=== PATIENT | female | born 1930 | race Caucasian/White ===

== ENCOUNTER 2017-06-02 17:07 | Inpatient (IN) | payer MEDICARE ==
[2017-06-02] MEDS ORDERED: Morphine 4 MG/ML VIAL ONE (18:21)
[2017-06-02] MEDS ORDERED: Ondansetron HCl/PF 4 MG/2 ML Vial ONE (18:21)
[2017-06-02 18:52] LABS: Bilirubin Small (Negative); Blood, Urine Negative (Negative); Glucose, Urine (Dipstick) Negative (Negative); Ketone, Urine Negative (Negative); Nitrite Negative (Negative); Protein, Urine (Dipstick) Trace mg/dL (Neg-Trace)
[2017-06-02 18:54] LABS: Bacteria/HPF None Seen HPF (None Seen); Hyaline Casts/LPF 4-6 HYALINE CAST LPF (0-3 Hyaline); RBC/HPF 0-3 HPF (0-3); Squamous Epithelial 0-3 HPF (0-3)
[2017-06-02 18:59] LABS: Renal Epithelial None Seen HPF (0-3); Transitional Epithelial NONE SEEN HPF (0-3)
--- NOTE | 2017-06-02 19:29 | RAD ---
RIGHT HIP 2 VIEWS: Date: 06/02/17 HISTORY: Right hip pain, trauma. COMPARISON: Femur radiographs from same day. FINDINGS: There is a mild varus-angulated intertrochanteric fracture of the right femur. Obturator ring appears to be intact. IMPRESSION: Mildly varus angulation of intertrochanteric fracture of the right femur which extends into the lesse r and greater trochanters. POS: FROYLAN
[2017-06-02 20:05] LABS: #Lymphocytes 0.8 thou/uL (1.20-3.40); #Neutrophils 9.5 thou/uL (1.40-6.50); %Basophils 0.1 % (0.0-1.0); %Eosinophils 0.1 % (0.0-10.0); %Lymphocytes 6.9 % (21.0-51.0); %Monocytes 8.5 % (0.0-10.0); Hematocrit 35.5 % (36.0-47.0); Mean Platelet Volume 6.4 fL (7.4-10.4); Red Blood Cell (RBC) Count 3.99 mill/uL (4.20-5.40); White Blood Cell (WBC) Count 11.3 thou/uL (4.8-10.8)
[2017-06-02 20:12] LABS: PTT 30.6 SEC (22.9-36.1)
[2017-06-02 20:27] LABS: ALT (SGPT) 13 U/L (8-55); AST (SGOT) 19 U/L (5-34); Alkaline Phosphatase 74 U/L (40-150); Anion Gap 12 mmol/L (10-20); BUN (Urea Nitrogen) 28 mg/dL (9.8-20.1); Bilirubin, Total 0.4 mg/dL (0.2-1.2); Calc. Creatinine Clearance 0 mL/min (70-130); Calcium 9.5 mg/dL (7.8-10.44); Carbon Dioxide 28 mmol/L (23-31); Chloride 102 mmol/L (98-107); Estimated GFR-MDRD 31; Globulin 2.9 g/dL (2.4-3.5); Protein, Total 6.8 g/dL (6.0-8.3)
[2017-06-02] MEDS ORDERED: Cyclobenzaprine 10 MG TAB ONE (20:52)
[2017-06-02] MEDS ORDERED: Ondansetron HCl/PF 4 MG/2 ML Vial IVP PRN ×2 (22:00→22:01)
[2017-06-02] MEDS ORDERED: Ondansetron ODT 4 MG TAB SL PRN (22:00)
[2017-06-02] MEDS ORDERED: Acetaminophen 325 MG TAB PO PRN (22:00)
[2017-06-02] MEDS ORDERED: Morphine 4 MG/ML VIAL SLOW IVP PRN ×2 (22:00→22:01)
[2017-06-02] MEDS ORDERED: Dextrose 50% Abboject 50 ML SYRINGE SLOW IVP PRN (22:01)
[2017-06-02] MEDS ORDERED: hydrALAZINE 20 MG/ML VIAL SLOW IVP PRN (22:01)
[2017-06-02] MEDS ORDERED: Morphine 2 mg/2ml in 0.9% NaCl PF SYRINGE IVP PRN (22:01)
[2017-06-02] MEDS ORDERED: Ondansetron ODT 4 MG TAB PO PRN (22:01)
[2017-06-02] MEDS ORDERED: Dextrose 5% in Water 1,000 ML IV PRN (22:01)
[2017-06-02] MEDS ORDERED: HYDROcodone/Acetaminophen 10/325 mg Tablet PO PRN (22:01)
[2017-06-02] MEDS ORDERED: Famotidine 20 MG TAB PO SCH (22:15)
--- NOTE | 2017-06-02 22:27 | HP ---
DATE OF ADMISSION: 06/02/2017 REQUESTING PHYSICIAN: Dr. Davenport. ATTENDING SURGEON: Dr. Juárez. CONSULTATIONS: Orthopedics, Dr. Gresham. HISTORY OF PRESENT ILLNESS: The patient is an 87-year-old woman who was loading things int o her truck when she lost her footing and slipped and fell and landed on her right hip. The patient had immediate pain, was assisted to a standing position by some bystanders and EMS was called. The p atient complained of significant right hip pain. [facility] [place]. She underwent evaluation and examination and was noted to have what was believed to be a lesser trochanteric fracture, at which time she was transferred here for orthopedic evaluatio n. Here, she had repeat films specifically of her right hip, the prior films were of her femur and o ur films showed that she actually had an intertrochanteric fracture at which time we were asked to ev aluate the patient for admission and obtain orthopedic consultations. ALLERGIES: REGLAN. CURRENT MEDICATIONS: Lisinopril 40 mg a day, amlodipine 10 mg a day, Protonix 40 mg a day, aspirin 8 1 mg a day. PAST MEDICAL HISTORY: Hypertension. PAST SURGICAL HISTORY: Hiatal hernia repair, left ankle ORIF and hysterectomy. SOCIAL HISTORY: The patient currently lives independently alone. She drinks a small glass of whiske y every other day. Denies drug use. Denies tobacco use. FAMILY MEDICAL HISTORY: Noncontributory. REVIEW OF SYSTEMS: A 10-point review of systems was negative, unless otherwise stated. PHYSICAL EXAMINATION: VITAL SIGNS: Blood pressure 114/66, heart rate 90, respirations 16, oxygen saturation 96% on room ai r. GENERAL: The patient is resting comfortably in the emergency room bed. She is alert and oriented x3 . Her Chauncey coma scale is 15. HEENT: Head is atraumatic, normocephalic. Eyes: Extraocular motion intact. PERRLA bilaterally. E ars are atraumatic without discharge. Nose is atraumatic without discharge. Oropharynx is clear. NECK: Nontender. Trachea is midline. No JVD. CHEST: Clear to auscultation with good inspiratory and expiratory effort. HEART: Regular rate and rhythm. ABDOMEN: Soft, flat, nontender with active bowel sounds. Pelvis is stable. EXTREMITIES: The patient is tender to right hip, consistent with her fracture. She is neurovascular ly intact x4. BACK: By report is atraumatic and nontender. LABORATORY FINDINGS: White blood cell count 11.3, hemoglobin 11.5, hematocrit 35.5, platelets 237. Sodium 137, potassium 4.5, chloride 102, CO2 of 28, BUN 28, creatinine 1.57, glucose 131. LFTs are u nremarkable. PTT 31, PT 14, INR 1.1. Urinalysis shows 11-20 wbc's with moderate leukocyte esterase and no bacteria. RADIOGRAPHS: Two views of the right hip show a mildly varus angulation of an intertrochanteric fract ure of the right femur, which extends into the lesser and greater trochanters. ASSESSMENT AND PLAN: 1. Status post ground level fall. 2. Right hip fracture. 3. Acute pain secondary to trauma. 4. History of hypertension. Plan will be to admit the patient to the surgical floor for pain management, pulmonary toilet, gastri tis and mechanical DVT prophylaxis. Consultation with Dr. Gresham. Dr. Gresham reviewed the rad iographs and history, we will discuss surgical options with the family in the morning and we will zohreh e the patient n.p.o. after midnight. The evaluation, examination, radiographic and laboratory findin gs will be discussed with Dr. Juárez after this dictation.
[2017-06-02] MEDS: HYDROcodone/Acetaminophen 10/325 mg Tablet PO PRN (22:58)
[2017-06-02] MEDS: Sodium Chloride 0.9% 1,000 ML IV SCH (22:59)
[2017-06-03] MEDS: Acetaminophen 1,000 MG in Premix Bag 1 BAG IVPB SCH ×3 (00:05→11:27)
[2017-06-03 04:07] VITALS: BMI 21.9
[2017-06-03 05:51] LABS: #Eosinphils 0.1 thou/uL (0.0-0.7); #Lymphocytes 1.5 thou/uL (1.20-3.40); #Monocytes 0.8 thou/uL (0.11-0.59); #Neutrophils 3.5 thou/uL (1.40-6.50); %Basophils 0.4 % (0.0-1.0); %Eosinophils 1.2 % (0.0-10.0); %Lymphocytes 25.7 % (21.0-51.0); %Monocytes 13.3 % (0.0-10.0); Hematocrit 31.5 % (36.0-47.0); Mean Platelet Volume 6.3 fL (7.4-10.4); Red Blood Cell (RBC) Count 3.49 mill/uL (4.20-5.40)
[2017-06-03 06:05] LABS: Anion Gap 7 mmol/L (10-20); BUN (Urea Nitrogen) 26 mg/dL (9.8-20.1); Calc. Creatinine Clearance 29 mL/min (70-130); Calcium 8.5 mg/dL (7.8-10.44); Carbon Dioxide 30 mmol/L (23-31); Chloride 103 mmol/L (98-107); Estimated GFR-MDRD 38
[2017-06-03] MEDS: Sodium Chloride 0.9% 1,000 ML IV SCH ×4 (06:41→20:55)
[2017-06-03] MEDS ORDERED: CEFAZOLIN/Water 2 GM/20 ML SYRINGE SLOW IVP SCH (08:45)
--- NOTE | 2017-06-03 09:40 | CON ---
DATE OF CONSULTATION: 06/03/2017 CHIEF COMPLAINT: Right hip pain. HISTORY OF PRESENT ILLNESS: Ms. Cervantes is an 87-year-old female who is active. 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 She lost her balance and fell. She landed o n her right hip. She had immediate pain. She was unable to ambulate. She was found to have an inte rtrochanteric femur fracture of the right hip on x-rays. She has been admitted to the hospital by [facility]. She has been comfortable. Pain is under control. No other complaints or problems. ALLERGIES: REGLAN. PAST MEDICAL HISTORY: Hypertension. PAST SURGICAL HISTORY: Hiatal hernia repair, previous left ankle ORIF, previous hysterectomy. SOCIAL HISTORY: The patient denies tobacco or drug use. She has occasional alcohol use. FAMILY MEDICAL HISTORY: Noncontributory. REVIEW OF SYSTEMS: Positive for mild right hip pain, otherwise negative 10-point review of systems. IMAGES: X-rays of the right hip reveal an intertrochanteric femur fracture with displacement. LABORATORY STUDIES: Hemoglobin 9.9, hematocrit 31.5, INR is 1.1. PHYSICAL EXAMINATION: VITAL SIGNS: Temperature is 98.4, pulse is 64, respiratory 16, oxygen saturation 94, blood pressure 126/69. GENERAL: She is alert, sitting upright in no apparent distress. RESPIRATORY: Breathing comfortably. ABDOMEN: Soft, nontender, and nondistended. MUSCULOSKELETAL: The patient's right lower extremity has an externally rotated position. She has pa lpable pulses and is able to flex and extend the foot and ankle. She has intact neurologic exam. IMPRESSION: Right intertrochanteric femur fracture in an elderly female. PLAN: At this point, the patient will need to go to the operating room for intramedullary nail fixat ion of her right proximal femur. She will be n.p.o. She is aware of risks and benefits. Goal of olmos rgery is early mobilization and prevention of complications of bed rest. She will have appropriate a ntibiotic and DVT prophylaxis.
[2017-06-03] MEDS ORDERED: Fentanyl 100 MCG/2 ML VIAL ONE ×3 (12:49→16:54)
[2017-06-03] MEDS ORDERED: Bupivacaine PF 0.5% 30 ML VIAL ONE (13:01)
[2017-06-03] MEDS ORDERED: Fentanyl 250 MCG/5 ML VIAL ONE (14:04)
[2017-06-03] MEDS ORDERED: Propofol 200 MG/20 ML VIAL ONE (14:24)
[2017-06-03] MEDS ORDERED: ePHEDrine/0.9% NaCl/PF SYRINGE 50 mg/10 ml ONE (14:24)
[2017-06-03] MEDS ORDERED: PHENYLEPHRINE-NS 100 MCG/ML 10 ML SYRINGE ONE (14:24)
[2017-06-03] MEDS ORDERED: Ondansetron HCl/PF 4 MG/2 ML Vial ONE (14:24)
[2017-06-03] MEDS ORDERED: Glycopyrrolate 0.2 MG/ML 5 ML SYRINGE ONE (14:24)
[2017-06-03] MEDS ORDERED: Lidocaine 1% PF 5 ML VIAL ONE (14:24)
[2017-06-03] MEDS ORDERED: Midazolam HCl 2 mg/2 ml Vial ONE (14:35)
[2017-06-03] MEDS ORDERED: Dexamethasone 4 mg/ml Vial ONE (14:36)
[2017-06-03] MEDS ORDERED: Promethazine HCl 25 MG/ML VIAL IM PRN (16:26)
[2017-06-03] MEDS ORDERED: Promethazine HCl 25 MG/ML VIAL SLOW IVP PRN (16:26)
[2017-06-03] MEDS ORDERED: Ondansetron HCl/PF 4 MG/2 ML Vial IVP PRN (16:26)
--- NOTE | 2017-06-03 17:03 | PRG ---
DATE OF SERVICE: 06/03/2017 This is Melissa Cullen NP, dictating daily progress note for Miguelangel Ferrara DO SUBJECTIVE: Ms. Cervantes is an 87-year-old female status post ground level fall. She presented to the ER last p.m. and was admitted with right intertrochanteric femur fracture. She has been stable on the floor overnight. She reports pain to her right hip that has been controlled with IV analgesia. She is currently n.p.o. and awaiting surgery today by orthopedics. OBJECTIVE: VITAL SIGNS: Temperature 98.4, pulse 64, respirations 16, O2 sat 94% on room air, blood pressure 126/69. GENERAL: Elderly female resting in bed in no acute distress. HEENT: Atraumatic, normocephalic. PULMONARY: Lungs clear to auscultation bilaterally. No respiratory distress. CARDIOVASCULAR: Regular rate and rhythm. ABDOMEN: Soft, nontender, nondistended. EXTREMITIES: Neurovascularly intact in all extremities. Moves all digits well. Cap refill brisk. Pain to right hip with palpation. ASSESSMENT: 87-year-old female status post ground level fall. 1. OR today with Orthopedics. 2. Rehab referral for discharge placement. 3. Monitor H&H postoperatively. Transfuse as indicated. The patient was seen and examined with attending trauma surgeon. RANJITH
--- NOTE | 2017-06-03 18:44 | RAD ---
INTRAOPERATIVE FLUOROSCOPY: Date: 06/03/17 HISTORY: Open reduction and internal fixation right hip. Right hip fracture. FINDINGS: Four fluoroscopic views demonstrate gamma nail and dynamic compression screw traversing the right hip . Fracture lucency is identified. Alignment is near anatomic. EXPOSURE: 35 seconds fluoro time. 3.70 mGy*cm^2. IMPRESSION: Fluoroscopy as above. POS: SHANELL
[2017-06-03] MEDS: Famotidine 20 MG TAB PO SCH (20:54)
--- NOTE | 2017-06-03 21:54 | OP ---
DATE OF PROCEDURE: 06/03/2017 OPERATION: Right femur intramedullary nail fixation of intertrochanteric femur fracture. PREOPERATIVE DIAGNOSIS: Right intertrochanteric femur fracture. POSTOPERATIVE DIAGNOSIS: Right intertrochanteric femur fracture. COMPLICATIONS: None. ESTIMATED BLOOD LOSS: 50 mL. SURGEON: Tamir Gresham M.D. ULTRASOUND TECH: Gerry Murray PA-C. INDICATIONS: Ms. Cervantes is an 87-year-old female who fell. She sustained a fracture of her right f emur. She was indicated for intramedullary nail fixation to restore alignment and promote healing. Risks have been reviewed. Goal of surgery is to promote early mobilization. DESCRIPTION OF OPERATION: Ms. Cervantes was identified in the preoperative holding area. Her correct extremity was marked. She was carried to the operating room. She was positioned supine. General an esthesia was induced. A multidisciplinary timeout was performed. The right lower extremity was prep ped and draped in sterile fashion. We began the procedure with applying traction to the right leg. We used intraoperative x-ray to eval uate the fracture. We reduced the fracture into its anatomic position with traction and rotation. O nce this was accomplished, we made a small incision over the greater trochanter. We incised down thr ough the fascia. We then inserted a guidewire into the tip of the trochanter distally. Next, we ove rreamed the guidewire from proximal to distal. We then placed our intramedullary device through our guide hole. This was seated appropriately using x-ray guidance. Next, we placed a helical blade in the center-center position of the femoral head. This was followed by placing a distal cross lock scr ew appropriately. After final x-ray images, there were no complications. We thoroughly irrigated ou r wounds. We then closed with 0 Vicryl suture, 2-0 Vicryl suture and ileana for the skin, a sterile dressing was applied. The patient was taken to the recovery room in good condition at this point. IMPLANTS: Synthes short trochanteric nail size 11 mm.
[2017-06-03] MEDS: traMADol HCl 50 MG TAB PO PRN (22:00)
[2017-06-03] MEDS: CEFAZOLIN/Water 2 GM/20 ML SYRINGE SLOW IVP SCH (22:06)
[2017-06-04] MEDS: traMADol HCl 50 MG TAB PO PRN ×2 (02:00→14:49)
[2017-06-04] MEDS: Sodium Chloride 0.9% 1,000 ML IV SCH ×2 (02:00→16:06)
[2017-06-04] MEDS: CEFAZOLIN/Water 2 GM/20 ML SYRINGE SLOW IVP SCH (06:23)
[2017-06-04] MEDS: Enoxaparin Sodium 40 MG/0.4 ML SYRINGE SC SCH (08:28)
[2017-06-04] MEDS: HYDROcodone/Acetaminophen 10/325 mg Tablet PO PRN (09:37)
--- NOTE | 2017-06-04 11:49 | PRG ---
DATE OF SERVICE: 06/04/2017 This is Melissa Cullen N.P. dictating daily progress note for Dr. Miguelangel Ferrara. SUBJECTIVE: Ms. Cervantes is an 87-year-old female status post ground level fall. She is postop day #1 status post IM nail fixation of right intertrochanteric femur fracture. She was stable overnight on the surgical floor. Pain has been well controlled while in bed, but she had significant pain when mobilizing with PT/OT. OBJECTIVE: VITAL SIGNS: Temperature 97.6, pulse 81, respirations 14, O2 sat 96%, and blood pressure 122/60. GENERAL: Elderly female resting in bed in no acute distress. HEENT: Atraumatic, normocephalic. PULMONARY: Lungs are clear to auscultation bilaterally. No respiratory distress. CARDIOVASCULAR: Regular rate and rhythm. ABDOMEN: Soft, nontender, and nondistended. EXTREMITIES: Neurovascularly intact. All extremities, moves all digits well. Cap refill brisk and faint. ASSESSMENT: 1. 87-year-old female status post ground level fall. 2. Status post open reduction and internal fixation of right intertrochanteric femur fracture. PLAN: 1. Continue current care as ordered. 2. Rehabilitation referral for discharge planning and placement. 3. Continue mobilizing with physical and occupational therapy. 4. Continue to monitor H&H and transfuse as indicated. 5. DC [place]. Start scheduled Tylenol and ultram. Plan of care was discussed at length with patient and her family. Family and patient prefer swing bed in [place] at discharge. Patient was seen and examined with Dr. Ferrara. [facility]PITAL[facility]ie
[2017-06-04] MEDS ORDERED: traMADol HCl 50 MG TAB PO PRN (14:47)
[2017-06-04] MEDS: traMADol HCl 50 MG TAB PO SCH ×2 (15:31→20:39)
[2017-06-04] MEDS: Acetaminophen 500 MG TAB PO SCH ×2 (15:33→20:39)
[2017-06-04] MEDS: Famotidine 20 MG TAB PO SCH (20:40)
[2017-06-05] MEDS: Sodium Chloride 0.9% 1,000 ML IV SCH (02:35)
[2017-06-05] MEDS: traMADol HCl 50 MG TAB PO SCH ×5 (03:33→22:12)
[2017-06-05] MEDS: Acetaminophen 500 MG TAB PO SCH ×4 (03:33→20:37)
[2017-06-05 07:00] LABS: #Eosinphils 0.3 thou/uL (0.0-0.7); #Lymphocytes 1.2 thou/uL (1.20-3.40); #Monocytes 0.8 thou/uL (0.11-0.59); #Neutrophils 4.4 thou/uL (1.40-6.50); %Basophils 0.7 % (0.0-1.0); %Eosinophils 4.7 % (0.0-10.0); %Lymphocytes 17.1 % (21.0-51.0); %Monocytes 11.5 % (0.0-10.0); Hematocrit 27.5 % (36.0-47.0); Mean Platelet Volume 6.7 fL (7.4-10.4); Red Blood Cell (RBC) Count 3.02 mill/uL (4.20-5.40); White Blood Cell (WBC) Count 6.7 thou/uL (4.8-10.8)
[2017-06-05 07:16] LABS: Anion Gap 9 mmol/L (10-20); BUN (Urea Nitrogen) 19 mg/dL (9.8-20.1); Calc. Creatinine Clearance 40 mL/min (70-130); Calcium 8.6 mg/dL (7.8-10.44); Carbon Dioxide 26 mmol/L (23-31); Chloride 103 mmol/L (98-107); Estimated GFR-MDRD 54; Magnesium 1.7 mg/dL (1.6-2.6); Phosphorus 2.4 mg/dL (2.3-4.7)
[2017-06-05] MEDS ORDERED: Potassium Phosphate 20 MMOL, Magnesium Sulfate 3 GM in Sodium Chloride 0.9% 250 ML 250 ML IVPB SCH (08:30)
[2017-06-05] MEDS: Enoxaparin Sodium 40 MG/0.4 ML SYRINGE SC SCH (08:37)
--- NOTE | 2017-06-05 15:36 | PRG ---
DATE OF SERVICE: 06/05/2017 This is Melissa Cullen N.P., dictating daily progress note for Miguelangel Ferrara D.O. SUBJECTIVE: Ms. Cervantes is an 87-year-old female, status post ground-level fall. She is postop day #2, status post IM nail fixation of right intertrochanteric femur fracture. She has been clinically stable overnight on the surgical floor. Her hemoglobin has trended down. It was 11.5 two days ago and today is 8.7. She did have some issues yesterday mobilizing with physical therapy. She had significant pain when mobilizing without taking her pain medications. OBJECTIVE: VITAL SIGNS: Temperature 98.4, pulse 88, respirations 16, blood pressure 126/ 69. GENERAL: Elderly female resting in bed in no acute distress. HEENT: Atraumatic, normocephalic. PULMONARY: No respiratory distress. Respirations are even and unlabored. CARDIOVASCULAR: Regular rate and rhythm. ABDOMEN: Soft, nontender, nondistended. EXTREMITIES: Neurovascularly intact. Capillary refill brisk. ASSESSMENT: 1. An 87-year-old female status post ground-level fall. 2. Status post open reduction and internal fixation, right intertrochanteric femur fracture. 3. Acute blood loss anemia. PLAN: 1. Continue mobilization with physical and occupational therapy. 2. Monitor H and H and transfuse as indicated. 3. Continue scheduled pain medication. 4. Case management consult for discharge planning. Extensive discussion had with patient and granddaughter. The patient still reports that she would like to discharge to swing bed in [place] when able to. Anticipate discharge will be in the next 1 to 2 days if H and H and clinical condition should remain stable. Plan of care was discussed at length with patient and granddaughter. The patient was seen and examined with Dr. Ferrara. RANJITH
[2017-06-05] MEDS: Famotidine 20 MG TAB PO SCH (20:37)
[2017-06-06] MEDS: Acetaminophen 500 MG TAB PO SCH ×2 (03:36→09:06)
[2017-06-06] MEDS: traMADol HCl 50 MG TAB PO SCH ×2 (03:36→09:06)
[2017-06-06 03:57] VITALS: BP 126/64
[2017-06-06 04:54] LABS: #Eosinphils 0.2 thou/uL (0.0-0.7); #Monocytes 0.5 thou/uL (0.11-0.59); #Neutrophils 2.9 thou/uL (1.40-6.50); %Basophils 0.3 % (0.0-1.0); %Lymphocytes 21.4 % (21.0-51.0); %Monocytes 11.2 % (0.0-10.0); Hematocrit 23.3 % (36.0-47.0); Mean Platelet Volume 7.2 fL (7.4-10.4); Red Blood Cell (RBC) Count 2.58 mill/uL (4.20-5.40); White Blood Cell (WBC) Count 4.7 thou/uL (4.8-10.8)
[2017-06-06 05:42] LABS: Anion Gap 6 mmol/L (10-20); BUN (Urea Nitrogen) 17 mg/dL (9.8-20.1); Calc. Creatinine Clearance 47 mL/min (70-130); Calcium 8.2 mg/dL (7.8-10.44); Carbon Dioxide 27 mmol/L (23-31); Chloride 103 mmol/L (98-107); Estimated GFR-MDRD 65; Magnesium 2.2 mg/dL (1.6-2.6); Phosphorus 2.4 mg/dL (2.3-4.7)
[2017-06-06] MEDS ORDERED: Ferrous Sulfate 325 MG TAB PO SCH (08:00)
[2017-06-06 08:20] VITALS: TEMP 98.5
[2017-06-06] MEDS: Enoxaparin Sodium 40 MG/0.4 ML SYRINGE SC SCH (08:58)
[2017-06-06] MEDS ORDERED: Docusate 100 MG CAP PO SCH (09:00)
[2017-06-06] MEDS ORDERED: Senokot 8.6 MG TAB PO SCH (09:00)
[2017-06-06] MEDS ORDERED: Ascorbic Acid 500 mg Chewable Tablet PO SCH (09:00)
[2017-06-06] MEDS ORDERED: Ibuprofen 800 MG TAB PO SCH (13:00)
--- NOTE | 2017-06-06 23:26 | DIS ---
DATE OF ADMISSION: 06/02/2017 DATE OF DISCHARGE: 06/06/2017 ATTENDING PHYSICIAN: Miguelangel Ferrara DO REASON FOR HOSPITALIZATION: Ground level fall with right hip fracture. HOSPITAL DIAGNOSES: Right intertrochanteric femur fracture in an elderly female. DATE OF PROCEDURE: 06/03/2017 OPERATION: Right femur intramedullary nail fixation of intertrochanteric femur fracture. SURGEON: Tamir Gresham MD DISCHARGE CONDITION: Good. DISCHARGE MEDICATIONS: Acetaminophen 1000 mg every 6 hours, ascorbic acid 1000 mg oral daily, aspirin 325 mg oral daily, docusate 100 mg oral daily, famotidine 20 mg oral daily, Zofran 4 mg oral every 6 hours as needed, Senokot 2 tabs oral daily, tramadol 100 mg oral q.6 hours. Continuing home medication of lisinopril, amlodipine, and pantoprazole. BRIEF HOSPITAL COURSE: An 87-year-old female who was admitted to the hospital on 06/02/2017 after a ground level fall when she slipped and landed on her right hip. Workup in the ED identified right hip fracture. She was admitted to the hospital by Trauma Services and a consult was made to Orthopedics. She was taken to the OR for ORIF of right hip. She progressed favorably postoperatively. She began to work with Physical Therapy and they recommended rehab placement. Case management was consulted for discharge planning and placement. Patient and family elected to go to swing bed at [place]. On 06/06/2017, she was discharged to swing bed without any complications. She is to follow up with Orthopedics. Discharge was discussed with Orthopedic PA. Patient is to be weightbearing as tolerated. She is on a regular diet. History, ROS, physical exam, assessment and discharge plan were reviewed with Dr. Ferrara. RANJITH
[2017-06-07] MEDS ORDERED: Aspirin 325 MG TAB PO SCH (09:00)
== END 2017-06-06 13:10 | disposition swing bed (61) | DRG 481 ==
LOC: ERS 17:07 → SURG A 19:50
PROVIDERS: ADMIT Surgery; ATTEND Surgery
PROC: 0QS606Z Reposition Right Upper Femur with Intramedullary Internal Fixation Device, Open Approach (ICD-10-PCS; principal; 2017-06-03)
PROC: 3E0T3BZ Introduction of Anesthetic Agent into Peripheral Nerves and Plexi, Percutaneous Approach (ICD-10-PCS; 2017-06-03)
DX: S72.141A Displaced intertrochanteric fracture of right femur, initial encounter for closed fracture (principal); D62 Acute posthemorrhagic anemia; I10 Essential (primary) hypertension; W01.0XXA Fall on same level from slipping, tripping and stumbling without subsequent striking against object, initial encounter
CPT/HCPCS: 36415; 51702; 76001; 80048; 80053; 81003; 81015; 83735; 84100; 85025; 85610; 85730; 86850; 86900; 86901; 93005; 96374; 96375; C1713; G0390; G8978-GP-CL; G8979-GP-CK; G8987-GO-CK; G8988-GO-CI; J0131; J1100; J1650; J2001; J2250; J2270; J2405; J2704; J3010; J3475; J7050; S0020